=== PATIENT | male | born 1940 | race Caucasian/White ===

== ENCOUNTER → 2018-12-03 | Outpatient (CLI) | payer OTHER, BC ==
[~2018-12-03] VITALS: Ht 172.7 cm; Wt 81.6 kg
[~2018-12-03] MED LIST: ADVAIR HFA 230M12 GM INH; ALEVE220 MG PO; ALLOPURINOL 10100 M1 PO; ALPHA LIPOIC A600 M1 PO; ASPIR 8181 M1 PO; ATORVASTATIN CA40 MG PO; CARVEDILOL3.125 MG PO; CELEXA10 MG PO; CENTRUM ADULTS1 EACH PO; CHONDROITIN SU100 GM PO; CO Q-10100 MG PO; COZAAR 25 MG TA25 M1 PO; DOXYCYCLINE 10100 MG PO; GLUCOSAMINE HC500 MG PO; MAGOX 400400 MG PO; MELATONIN3 M1 PO; OMEGA-31000 M1 PO; OMEPRAZOLE40 MG PO; PREVAGEN PO; PROAIR HFA8.5 GM; PROSCAR 5MG TABL5 MG PO; RANITIDINE HCL300 M1 PO; RAPAFLO8 MG PO; SINGULAIR 10 MG10 M1 PO; TRAMADOL 50 MG50 MG PO; TRAMADOL HCL50 MG PO; TYLENOL EXTRA500 MG PO; VITAMIN E400 UNIT PO
[2018-12-03 10:33] VITALS: BP 152/78
--- NOTE | 2018-12-03 11:48 | NUR ---
Pain Clinic Assessment: 1. History of Osteoarthritis: NECK History of Rheumatoid Arthritis: Not Applicable 2. Height: 5 ft. 8 in. 172.7 cm. Weight: 180.0 lb. oz. 81.648 kg. Patient's BMI: 27.4 3. Vital Signs: BP: 152/78 Pulse: 64 Resp: 16 Temp: 02 Sat: 100 ECG Mon: 4. Pain Intensity: 4-5 5. Fall Risk: Dizziness: Y Needs help standing or walking: N Fallen in the last 3 months: N Fall risk comments: 6. Patient on Blood Thinner: None 7. History of Hypertension: Y 8. Opioid Therapy greater than 6 weeks: Y Opiate Contract Signed: 12/03/18 9. Risk Assessment Tool Provided: 1-LOW RISK 10. Functional Assessment Tool: 11. Recreational Drug Use: Unknown Drug Type: Tobacco Use: Former Smoker Tobacco Type: Cigars Amount or Packs/day: How Many Years: 30 Alcohol Use: Yes Frequency: Weekly Quant: 3-4/WEEK
--- NOTE | 2018-12-10 07:40 | HPC ---
[facility] [address] [place] [address] PAIN MANAGEMENT CONSULTATION Name: AVELNESHA Annie Room #: REG TACHO Spears#: [id number] Admission: 12/03/18 ������������������ Attend Phys: Tristen Vilchis MD Discharge: ������������������ Date of : 36 Report #: [id number] THIS REPORT FOR: //name// CC: Dr. Antoinette Haywood FAM unknown Tristen Vilchis DATE OF SERVICE: 12/03/2018 CHIEF COMPLAINT: Chronic neck pain. HISTORY OF PRESENT ILLNESS: The patient is here today in the pain clinic in followup. I provided him with modest amounts of medication for chronic pain. He uses tramadol effectively, taking generally no more than 2-4 tablets a day; often times, it is on the lower side. He has had days where he requires no medication. He describes his pain as a continuous, periodic, burning and aching pain, scored as a 4-5/10. We have tried some injections on him in the past, providing short-term relief, but nothing lasting. Because he tolerates the tramadol so well and it is effective for him, he does not seek additional treatments and I am certainly not pushing him towards injections that are not helpful for more than a few days. I have seen him for many years now in [facility]. He is now being seen for the first time at [facility]. We reviewed his opioid agreement, even though he is only on a mild schedule through tramadol. He signed it for me today. He will safeguard his medicines. Today, he reports that his pain is a 4-5/10 and tolerable. In addition to his medications, he uses heat packs, massage, Tylenol and occasional Aleve. We discussed the side effects of the non-steroidal anti-inflammatory drugs on many occasions. MEDICATIONS: Reviewed and reconciled. The only medication I provided for him is tramadol; all the rest are provided by his primary care physician. There is a significant list noted on the electronic medical record. ALLERGIES: PENICILLIN. PAST MEDICAL HISTORY: Significant for hypertension, asthma, history of myocardial infarction and kidney stones. He has irritable bowel syndrome, osteoarthritis. He was treated for bladder cancer in 2003, with occasional bladder checks. He had a 5-vessel coronary artery bypass grafting procedure in 1994 and a stent placed in 2014. SOCIAL HISTORY: He is . His is a patient of mine as well with chronic pain in her back. She has a stimulator in place. 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 He denies the use of tobacco smoke, but enjoys chewing on a cigar occasionally. He quit smoking in 2003. He drinks alcohol 3-4 times a week. Past medical history is noted above. He is concerned that a physician told him that he had dementia. I asked him number of questions. He does not get lost when driving. He has no issues with time and is aware of time in appropriate sense at all times. He can read an entire newspaper article or magazine article from front to finish and remember the details. He has no difficulty following a television show. He has some short-term memory issues, but these are mild to moderate. I think he is functioning at a higher level than he recognizes. Certainly, for the patients we know with dementia. He shows very little of it during conversation and his questions would indicate that he is highly functional. I do not think it does any good for a physician to tell him he has dementia because this creates an additional anxiety. I reassured him that I do not believe that he has dementia, certainly nothing active enough at this point in time to warrant concerns or aggressive treatment. We will try to remain socially, physically and intellectually active. Medications were provided for him today under terms of his written agreement. He was given a prescription for tramadol 50 mg 120 tablets with 2 refills. I will see him back as needed. If the pain becomes severe, I will consider repeating epidural injections for him. ��������������������������������������������� <ELECTRONICALLY SIGNED> ���������������������������������������� By: Tristen Vilchis MD ��������������������������������������������� 12/10/18 0740 [id number] [id number] Tristen Vilchis MD /nt
== END ==
LOC: PAIN 07:49
DX: M54.2 Cervicalgia (principal); G89.29 Other chronic pain; Z88.0 Allergy status to penicillin